=== PATIENT | male | born 1970 | race Caucasian/White ===

== ENCOUNTER 2016-10-17 01:40 | Emergency (ER) | payer BC ==
[~2016-10-17] VITALS: Ht 175.3 cm; Wt 65.9 kg
[2016-10-17 01:42] VITALS: BP 150/87; PULSE 78; TEMP 98.3
[2016-10-17] MEDS ORDERED: AMOXICILLIN 25250 MG PO (01:45)
== END 2016-10-17 02:29 | disposition home or self-care (01) ==
LOC: COL.ER 01:40
DX: M79.89 Other specified soft tissue disorders (principal); Z57.4 Occupational exposure to toxic agents in agriculture

== ENCOUNTER 2017-08-05 12:45 | Inpatient (IN) | payer SELFPAY ==
[~2017-08-05] VITALS: Ht 175.3 cm; Wt 65.8 kg
[2017-08-05] VITALS (325 sets, daily range): BP systolic 111–118; BP diastolic 74–79; PULSE 76–102; TEMP 97.7–98; O2SAT 70–100
[~2017-08-05 12:45] MED LIST: AMOXICILLIN 25250 MG PO
[2017-08-05 14:26] LABS: HEMOGLOBIN 11.4 g/dl (13.5-18.0); MEAN CELL VOLUME 98 fl (80.0-100.0); MEAN CORPUSCULAR HEMOGLOBIN 37 pg (27.0-31.0); MEAN CORPUSCULAR HGB CONC 38 g/dl (33.0-37.0); MEAN PLATELET VOLUME 10.7 fl (7.4-10.4); PLATELET COUNT 180 K/mm3 (130-400); RED BLOOD COUNT 3.06 M/mm3 (4.20-5.60); REDCELL DISTRIBUTION WIDTH-CV 16.9 % (11.5-14.5)
[2017-08-05 14:31] LABS: HEMATOCRIT 30.1 % (42.0-52.0)
[2017-08-05 14:41] LABS: ALBUMIN 3.4 gm/dL (3.5-5.0); CALCIUM 8.5 mg/dL (8.4-10.2); TOTAL PROTEIN 8.9 gm/dL (6.4-8.2)
[2017-08-05 14:46] LABS: BAND 5 % (0-10); LYMPHOCYTE 9 % (20.0-51.0); NEUTROPHILS 80 % (42.0-75.2); PLATELET ESTIMATE NORMAL (NORMAL)
[2017-08-05 14:47] LABS: ANISOCYTOSIS 2+; MICROCYTOSIS 1+; TARGET CELLS 2+
[2017-08-05 14:48] LABS: POIKILOCYTOSIS 2+
[2017-08-05 14:53] LABS: BILIRUBIN,TOTAL 30.4 mg/dL (0.0-1.0)
[2017-08-05 14:54] LABS: CREATININE, serum 4.05 mg/dL (0.66-1.25); POTASSIUM 2.9 mmol/L (3.4-5.0)
[2017-08-05 15:56] LABS: INR 1.9 (0.8-3.0); PROTHROMBIN TIME 21.6 SECONDS (9.7-12.8)
[2017-08-05 15:59] LABS: PARTIAL THROMBOPLASTIN TIME 39.3 SECONDS (26.0-37.0)
[2017-08-06] VITALS (881 sets, daily range): BP systolic 107–123; BP diastolic 80–91; PULSE 98–108; TEMP 97.7–98.2; O2SAT 51–100
[2017-08-06 01:09] LABS: URINE PROTEIN:CREAT RATIO 0.82 (0.00-0.14)
[2017-08-06 05:58] LABS: HEMOGLOBIN 10.6 g/dl (13.5-18.0); MEAN CELL VOLUME 99 fl (80.0-100.0); MEAN CORPUSCULAR HEMOGLOBIN 37 pg (27.0-31.0); MEAN CORPUSCULAR HGB CONC 37 g/dl (33.0-37.0); MEAN PLATELET VOLUME 10.9 fl (7.4-10.4); PLATELET COUNT 178 K/mm3 (130-400); RED BLOOD COUNT 2.89 M/mm3 (4.20-5.60); REDCELL DISTRIBUTION WIDTH-CV 17.2 % (11.5-14.5)
[2017-08-06 06:04] LABS: HEMATOCRIT 28.7 % (42.0-52.0)
[2017-08-06 06:06] LABS: ALBUMIN 3.2 gm/dL (3.5-5.0); MAGNESIUM 2.2 mg/dL (1.6-2.3); POTASSIUM 3.4 mmol/L (3.4-5.0); TOTAL PROTEIN 8.1 gm/dL (6.4-8.2)
[2017-08-06 07:09] LABS: BILIRUBIN,DIRECT 27.6 mg/dL (0.0-0.4); BILIRUBIN,TOTAL 30.7 mg/dL (0.0-1.0)
[2017-08-06 07:12] LABS: CREATININE, serum 4.16 mg/dL (0.66-1.25)
[2017-08-06 08:04] LABS: BAND 20 % (0-10); LYMPHOCYTE 4 % (20.0-51.0); METAMYELOCYTE 3 % (0-0); NEUTROPHILS 67 % (42.0-75.2); NUCLEATED RED BLOOD CELL 1 (0-6); PLATELET ESTIMATE NORMAL (NORMAL)
[2017-08-06 09:08] LABS: INR 1.9 (0.8-3.0); PROTHROMBIN TIME 21.4 SECONDS (9.7-12.8)
[2017-08-06 16:45] LABS: PERITONEAL -POLYMORPHONUCLEAR 34.9 % (0-25); PERITONEAL FLUID RBC 0 /mm3 (0-0)
[2017-08-07] VITALS (708 sets, daily range): BP systolic 106–131; BP diastolic 68–79; PULSE 93–106; TEMP 97.6–98.9; O2SAT 53–100
[2017-08-07 02:22] LABS: HEPATITIS B SURFACE ANTIBODY 58.8 (())
[2017-08-07 06:25] LABS: BASO % 0.3 % (0.0-2.0); EOS # 0.1 (0.0-0.7); EOS % 0.4 % (0-4.0); GRAN # 11.4 (1.4-6.5); GRAN % 83.3 % (42.2-75.2); LYMPH % 6.9 % (20.0-51.0); MEAN CELL VOLUME 102 fl (80.0-100.0); MEAN CORPUSCULAR HGB CONC 36 g/dl (33.0-37.0); MEAN PLATELET VOLUME 10.9 fl (7.4-10.4); MONO # 1.1 (0.1-0.6); MONO % 7.9 % (1.7-9.3); PLATELET COUNT 116 K/mm3 (130-400); RED BLOOD COUNT 2.36 M/mm3 (4.20-5.60); REDCELL DISTRIBUTION WIDTH-CV 17.8 % (11.5-14.5)
[2017-08-07 06:27] LABS: PROTHROMBIN TIME 22.5 SECONDS (9.7-12.8)
[2017-08-07 06:29] LABS: HEMATOCRIT 24.1 % (42.0-52.0); HEMOGLOBIN 8.7 g/dl (13.5-18.0); MEAN CORPUSCULAR HEMOGLOBIN 37 pg (27.0-31.0)
[2017-08-07 06:34] LABS: ALANINE AMINOTRANSFERASE 41 U/L (21-72); ALBUMIN 3.4 gm/dL (3.5-5.0); ALKALINE PHOSPHATASE 194 U/L (50-136); ANION GAP 17 mmol/L (7-16); AST,SGOT 107 U/L (15-37); BLOOD UREA NITROGEN 33 mg/dL (9-20); CALCIUM 8.3 mg/dL (8.4-10.2); CARBON DIOXIDE 27 mmol/L (22-30); CREATININE, serum 3.27 mg/dL (0.66-1.25); GLUCOSE 106 mg/dL (74-106); POTASSIUM 3.3 mmol/L (3.4-5.0); SODIUM 129 mmol/L (137-145); TOTAL PROTEIN 7.5 gm/dL (6.4-8.2)
[2017-08-07 06:41] LABS: CHLORIDE 85 mmol/L (98-107)
[2017-08-07 06:42] LABS: BILIRUBIN,TOTAL 26.6 mg/dL (0.0-1.0)
[2017-08-08] VITALS (878 sets, daily range): BP systolic 101–116; BP diastolic 61–78; PULSE 96–102; TEMP 97.2–99.1; O2SAT 72–100
[2017-08-08 06:13] LABS: BASO # 0.1 (0.0-0.2); BASO % 0.4 % (0.0-2.0); EOS # 0.1 (0.0-0.7); EOS % 0.7 % (0-4.0); GRAN # 10.9 (1.4-6.5); GRAN % 80.5 % (42.2-75.2); LYMPH % 7.3 % (20.0-51.0); MEAN CELL VOLUME 101 fl (80.0-100.0); MEAN CORPUSCULAR HGB CONC 36 g/dl (33.0-37.0); MONO # 1.3 (0.1-0.6); MONO % 9.9 % (1.7-9.3); PLATELET COUNT 131 K/mm3 (130-400); RED BLOOD COUNT 2.66 M/mm3 (4.20-5.60); REDCELL DISTRIBUTION WIDTH-CV 17.5 % (11.5-14.5)
[2017-08-08 06:14] LABS: INR 2.2 (0.8-3.0); PROTHROMBIN TIME 24.6 SECONDS (9.7-12.8)
[2017-08-08 06:15] LABS: HEMATOCRIT 26.8 % (42.0-52.0); HEMOGLOBIN 9.7 g/dl (13.5-18.0); MEAN CORPUSCULAR HEMOGLOBIN 36 pg (27.0-31.0)
[2017-08-08 06:25] LABS: ALBUMIN 3.1 gm/dL (3.5-5.0); CALCIUM 8.3 mg/dL (8.4-10.2); CREATININE, serum 2.45 mg/dL (0.66-1.25); MAGNESIUM 1.9 mg/dL (1.6-2.3); POTASSIUM 3.3 mmol/L (3.4-5.0); TOTAL PROTEIN 7.1 gm/dL (6.4-8.2)
[2017-08-08 06:47] LABS: BILIRUBIN,TOTAL 26.7 mg/dL (0.0-1.0)
[2017-08-09] VITALS (549 sets, daily range): BP systolic 108–131; BP diastolic 68–100; PULSE 91–102; TEMP 97.9–98.9; O2SAT 75–100
[2017-08-09 06:07] LABS: BASO # 0.1 (0.0-0.2); BASO % 0.7 % (0.0-2.0); EOS # 0.2 (0.0-0.7); EOS % 1.2 % (0-4.0); GRAN # 10.1 (1.4-6.5); GRAN % 78.6 % (42.2-75.2); LYMPH # 1.1 (1.2-3.4); LYMPH % 8.3 % (20.0-51.0); MEAN CELL VOLUME 103 fl (80.0-100.0); MEAN CORPUSCULAR HGB CONC 36 g/dl (33.0-37.0); MEAN PLATELET VOLUME 11.3 fl (7.4-10.4); MONO # 1.3 (0.1-0.6); MONO % 10.2 % (1.7-9.3); PLATELET COUNT 124 K/mm3 (130-400); RED BLOOD COUNT 2.62 M/mm3 (4.20-5.60); REDCELL DISTRIBUTION WIDTH-CV 17.7 % (11.5-14.5)
[2017-08-09 06:10] LABS: HEMOGLOBIN 9.7 g/dl (13.5-18.0); MEAN CORPUSCULAR HEMOGLOBIN 37 pg (27.0-31.0)
[2017-08-09 06:23] LABS: ALBUMIN 3.6 gm/dL (3.5-5.0); CALCIUM 8.9 mg/dL (8.4-10.2); CREATININE, serum 2.04 mg/dL (0.66-1.25); POTASSIUM 3.1 mmol/L (3.4-5.0); TOTAL PROTEIN 7.5 gm/dL (6.4-8.2)
[2017-08-09 06:35] LABS: INR 2.1 (0.8-3.0); PROTHROMBIN TIME 24.4 SECONDS (9.7-12.8)
[2017-08-09 06:43] LABS: BILIRUBIN,TOTAL 29.3 mg/dL (0.0-1.0)
[2017-08-09 11:14] LABS: ANTISMOOTH MUSCLE ANTIBODY Negative (Negative)
[2017-08-09 16:50] LABS: EBV NUCLEAR ANTIGEN (EBNA)-IgG XXX
[2017-08-10] VITALS (13 sets, daily range): BP systolic 99–128; BP diastolic 66–85; PULSE 56–111; TEMP 97.5–99.2
[2017-08-10 06:51] LABS: HEMOGLOBIN 10.7 g/dl (13.5-18.0); MEAN CELL VOLUME 103 fl (80.0-100.0); MEAN CORPUSCULAR HEMOGLOBIN 37 pg (27.0-31.0); MEAN CORPUSCULAR HGB CONC 36 g/dl (33.0-37.0); MEAN PLATELET VOLUME 11.1 fl (7.4-10.4); PLATELET COUNT 151 K/mm3 (130-400); REDCELL DISTRIBUTION WIDTH-CV 18.4 % (11.5-14.5)
[2017-08-10 06:52] LABS: INR 2.1 (0.8-3.0); PROTHROMBIN TIME 23.9 SECONDS (9.7-12.8)
[2017-08-10 06:58] LABS: ALBUMIN 3.5 gm/dL (3.5-5.0); CALCIUM 9.2 mg/dL (8.4-10.2); CREATININE, serum 2.11 mg/dL (0.66-1.25); POTASSIUM 3.5 mmol/L (3.4-5.0); TOTAL PROTEIN 7.6 gm/dL (6.4-8.2)
[2017-08-10 07:00] LABS: HEMATOCRIT 29.8 % (42.0-52.0)
[2017-08-10 07:20] LABS: BILIRUBIN,TOTAL 32.8 mg/dL (0.0-1.0)
[2017-08-10 07:59] LABS: ANISOCYTOSIS 1+; BAND 18 % (0-10); BASOPHIL 1 % (0-2); LYMPHOCYTE 6 % (20.0-51.0); NEUTROPHILS 71 % (42.0-75.2); PLATELET ESTIMATE NORMAL (NORMAL)
[2017-08-10 08:00] LABS: TARGET CELLS 1+
[2017-08-10 18:57] LABS: ARTERIAL BLD GAS O2 SATURATION 89.3 % (92-100); ARTERIAL BLD GAS TCO2 CT 25.5; ARTERIAL BLOOD GAS BASE EXCESS 0.9 (-2-2); ARTERIAL BLOOD GAS HCO3 24.4 meq/L (22-26); ARTERIAL BLOOD GAS PCO2 35.4 mmHg (35-45); ARTERIAL BLOOD GAS PO2 58.6 mmHg (80-100); ARTERIAL BLOOD GAS pH 7.46 (7.35-7.45)
[2017-08-11 02:05] VITALS: BP 101/62; PULSE 100; TEMP 98.2
[2017-08-11 04:07] VITALS: BP 116/58; PULSE 102; TEMP 98
[2017-08-11 05:41] VITALS: BP 97/65; PULSE 96; TEMP 97.5
[2017-08-11 06:11] LABS: HEMOGLOBIN 10.2 g/dl (13.5-18.0); MEAN CELL VOLUME 107 fl (80.0-100.0); MEAN CORPUSCULAR HEMOGLOBIN 37 pg (27.0-31.0); MEAN CORPUSCULAR HGB CONC 35 g/dl (33.0-37.0); MEAN PLATELET VOLUME 10.7 fl (7.4-10.4); PLATELET COUNT 130 K/mm3 (130-400); RED BLOOD COUNT 2.73 M/mm3 (4.20-5.60); REDCELL DISTRIBUTION WIDTH-CV 18.4 % (11.5-14.5)
[2017-08-11 06:13] LABS: HEMATOCRIT 29.1 % (42.0-52.0); INR 2.1 (0.8-3.0); PROTHROMBIN TIME 23.6 SECONDS (9.7-12.8)
[2017-08-11 06:19] LABS: ALBUMIN 3.3 gm/dL (3.5-5.0); CALCIUM 9.1 mg/dL (8.4-10.2); CREATININE, serum 3.14 mg/dL (0.66-1.25); POTASSIUM 3.8 mmol/L (3.4-5.0); TOTAL PROTEIN 7.5 gm/dL (6.4-8.2)
[2017-08-11 06:26] LABS: BILIRUBIN,TOTAL 33.2 mg/dL (0.0-1.0)
[2017-08-11 06:48] LABS: BAND 24 % (0-10); BASOPHIL 1 % (0-2); EOSINOPHIL 1 % (0-4); LYMPHOCYTE 2 % (20.0-51.0); NEUTROPHILS 67 % (42.0-75.2)
[2017-08-11 06:50] LABS: ANISOCYTOSIS 1+; PLATELET ESTIMATE DECREASED (NORMAL)
[2017-08-11 06:51] LABS: TARGET CELLS 1+
[2017-08-11 08:21] VITALS: BP 104/75; PULSE 104; TEMP 98.9
[2017-08-12] MEDS ORDERED: ATIVAN 0.50.5 MG/TAB PO (09:38)
[2017-08-12] MEDS ORDERED: ROXANOL 20MG20 MG/ML SL (09:38)
[2017-08-12] MEDS ORDERED: TRANSDERM-0.5 MG/21 TD (09:38)
[2017-08-12] MEDS ORDERED: ZOFRAN 4MG T4 MG/TAB PO (09:38)
[2017-08-12] MEDS ORDERED: LIQUIFILM TEARS15 ML OP (09:38)
[2017-08-12 12:13] VITALS: BP 104/75; PULSE 104; TEMP 98.9
== END 2017-08-12 12:36 | disposition hospice, inpatient (51) | DRG 371 ==
LOC: COL.ER 12:45 → ICU 16:07 → MEDICAL 08-09 14:24
PROVIDERS: Emergency Medicine; Family Medicine; Internal Medicine; Internal Medicine Gastroenterology
PROC: 0W9G3ZX Drainage of Peritoneal Cavity, Percutaneous Approach, Diagnostic (ICD-10-PCS; principal; 2017-08-06)
DX: K65.2 Spontaneous bacterial peritonitis (principal); G93.41 Metabolic encephalopathy; J69.0 Pneumonitis due to inhalation of food and vomit; Z66 Do not resuscitate; Z51.5 Encounter for palliative care; N17.9 Acute kidney failure, unspecified; E87.1 Hypo-osmolality and hyponatremia; E87.2 Acidosis; E44.0 Moderate protein-calorie malnutrition; B25.1 Cytomegaloviral hepatitis; F10.231 Alcohol dependence with withdrawal delirium; C22.9 Malignant neoplasm of liver, not specified as primary or secondary; K70.31 Alcoholic cirrhosis of liver with ascites; E87.6 Hypokalemia; E83.42 Hypomagnesemia; I10 Essential (primary) hypertension; Z87.891 Personal history of nicotine dependence; Y90.0 Blood alcohol level of less than 20 mg/100 ml; K70.40 Alcoholic hepatic failure without coma; D53.9 Nutritional anemia, unspecified
CPT/HCPCS: OP; 99223-AI; 99232-AI; 99233-AI; 99239; C1751; C1894; C9113; G0378; J0696; J1170; J1644; J2060; J3411; J3475; J3480; J7030; P9047